=== PATIENT | female | born 1995 | race Caucasian/White ===

== ENCOUNTER 2016-07-27 13:22 | Outpatient (CLI) | payer MEDICAID, OTHER ==
[~2016-07-27] VITALS: Ht 154.9 cm; Wt 96.6 kg
[~2016-07-27 13:22] MED LIST: DOXY100T20 PO; IBUP-1542 PO; NEOM28OI TOP
[2016-07-27 13:25] VITALS: Ht 154.9 cm; Wt 96.6 kg
[2016-07-27 13:32] VITALS: BP 112/65; PULSE 87; RESP 18
[2016-07-27] MEDS ORDERED: TERBUTALINE 1 MG/ML INJ SC ONE (14:30)
[2016-07-27] MEDS ORDERED: LACTATED RINGER'S 1,000 ML IV ONE (14:30)
--- NOTE | 2016-07-27 14:55 | RADRPT ---
PROCEDURE: OB ultrasound for biophysical profile CLINICAL INDICATION: Contractions. TECHNIQUE: Multiple sonographic images of the pelvis were obtained. Transabdominal view of the gr avid uterus are available for review. The images were reviewed on a PACS workstation. COMPARISON: None FINDINGS: breathing movement = 2/2 tone = 2/2 motion = 2/2 Quantitative amniotic fluid volume = 2/2 TEJA = 16.8 cm Single live intrauterine with cardiac activity at 138 beats per minute. There is a fundal placenta without previa. IMPRESSION: 1. Single living intrauterine gestation in cephalic position. 2. Biophysical profile = 10/10. 3. TEJA = 16.8 cm. RPTAT: [facility] Physician Mansoor Date Time Electronically viewed and signed by [place] Physician on 07/27/2016 14:54 /
--- NOTE | 2016-07-27 15:48 | CONS ---
Date/Time of Note Date/Time of Note DATE: 07/27/16 TIME: 15:45 Assessment/Plan Assessment/Plan Additional Assessment/Plan 21 y/o at 35w 6d with contractions, now resolved, not in labor -discharge home with ptl/labor precautions -f/u with OB Consultation Date/Type/Reason Admit Date/Time Reason for Consultation Contractions Hx of Present Illness 21 y/o at 35w 6d who presents with contractions. Contractions were every few minutes, but have resolved s/p IVFs and terbutaline. Denies LOF, VB. +FM. Getting PNC, no complications. Past Medical History Medical History: no pertinent history Past Surgical History Past Surgical Hx: no surgical history Social History Denies habits Smoking Status: Never smoker Exam/Review of Systems Vital Signs Vitals Vital Signs Date Time Temp Pulse Resp B/P Pulse Ox O2 Delivery O2 Flow Rate FiO2 07/27/16 13:32 98.4 87 18 112/65 Room Air Exam Gen: NAD HEENT: NCAT CV: RRR Pulm: CTAB Abd: gravid, NT Back: no CVAT Ext: NT SVE: FT/50/-3 FHT: reactive [place]: irritability CRICKET GELLER July 27, 2016 15:48
[2016-07-27] MEDS ORDERED: PREN-93 PO (15:50)
--- NOTE | 2016-07-27 16:17 | TRIAGE ---
OB Triage Datetime Report Generated by CPN: 07/27/2016 16:17 Datetime: 07/27/2016 15:39 Comments: IV D/C'D, IV Catheter intact, IV site with no complication. Datetime: 07/27/2016 15:38 Comments: Dr. Carreno at bedside to review strip and assess pt. New order to sent pt home. She instr ucted pt to return to hospital if contractions get closer and stronger. Pt verbalized understanding . Datetime: 07/27/2016 15:30 Labor Evaluation Frequency: 4-9 Monitor Mode: External Duration (sec)2399: 40-70 Quality: Mild Pattern: Normal: <= 5 Contractions in 10 Minutes Resting Tone [place]: Relaxed Heart Rate FHR Baseline Rate: 140 Monitor Mode: External US FHR Baseline Changes: No Baseline Change Variability: Moderate 6-25 bpm Accelerations: 15X15 Decelerations: None Category: Category I Pain Assessment Pain Scale: 0 Pain Presence: None/Denies Pain Type: N/A Pain Goal: 3 Datetime: 07/27/2016 15:05 Labor Evaluation Frequency: 2-7 Monitor Mode: External Duration (sec)2399: 30-60 Quality: Mild Pattern: Normal: <= 5 Contractions in 10 Minutes Resting Tone [place]: Relaxed Heart Rate FHR Baseline Rate: 130 Monitor Mode: External US FHR Baseline Changes: No Baseline Change Variability: Moderate 6-25 bpm Accelerations: 15X15 Decelerations: None Category: Category I Pain Assessment Pain Scale: 3 Pain Presence: Intermittent Pain Type: Cramping Pain Location: Abdomen; Back Pain Goal: 3 Datetime: 07/27/2016 14:36 Labor Evaluation Frequency: 2-7 Monitor Mode: External Duration (sec)2399: 40-60 Quality: Mild Pattern: Normal: <= 5 Contractions in 10 Minutes Resting Tone [place]: Relaxed Heart Rate FHR Baseline Rate: 135 Monitor Mode: External US FHR Baseline Changes: No Baseline Change Variability: Moderate 6-25 bpm Accelerations: 15X15 Decelerations: None Category: Category I Datetime: 07/27/2016 14:03 Comments: Dr. Coelho was informed of pt's arrival to unit with c/o uc's. Pt blanka 2-5, VE 0. 5/50/-3. New order to start IV, give a dose of terbulatine, and Bpp Datetime: 07/27/2016 14:00 Labor Evaluation Frequency: 2-5 Monitor Mode: External Duration (sec)2399: 40-70 Quality: Mild Pattern: Normal: <= 5 Contractions in 10 Minutes Resting Tone [place]: Relaxed Heart Rate FHR Baseline Rate: 135 Monitor Mode: External US FHR Baseline Changes: No Baseline Change Variability: Moderate 6-25 bpm Accelerations: 15X15 Decelerations: None Category: Category I Pain Assessment Pain Scale: 3 Pain Presence: Intermittent Pain Type: Cramping Pain Location: Abdomen Pain Goal: 3 Pain Relief Measures: Comfort Measures Datetime: 07/27/2016 13:56 Vaginal Exam Dilatation (cms): 0.5 Effacement (%): 50 Station: -3 Exam By: LH Datetime: 07/27/2016 13:33 Time of Arrival: 07/27/2016 13:15 EGA: 35.6 Arrived By: Ambulatory Arrived From: Home Chief Complaint: CONTRACTIONS EVERY 30 MIN Movement: Present Contractions: Irregular Time Contractions Began: 07/27/2016 08:00 Rupture of Membranes: Denies Vaginal Bleeding: None Vaginal Discharge: Denies Recent Sexual Intercouse: Denies Abdominal Trauma: Not Applicable Patient Complaints: Contractions Initial Plan: NST, VE, IV hydration, terb 0.25mg and BPP
== END 2016-07-27 16:20 | disposition home or self-care (01) ==
LOC: OBT 13:22 → L-D 13:23 → OBT 16:20
PROVIDERS: ATTEND Obstetrics & Gynecology
DX: O62.9 Abnormality of forces of labor, unspecified (principal); Z3A.35 35 weeks gestation of pregnancy
CPT/HCPCS: 76818; 96360; 96361; 96372; J3105; J7120; Z7500; G0463

== ENCOUNTER 2016-08-28 05:00 | Inpatient (IN) | payer OTHER ==
[~2016-08-28] VITALS: Ht 154.9 cm; Wt 96.4 kg
[~2016-08-28 05:00] MED LIST changes: -DOXY100T20 PO; -IBUP-1542 PO; -NEOM28OI TOP; +PREN-93 PO
[2016-08-28 05:22] VITALS: BP 109/57; PULSE 75; RESP 18
[2016-08-28] MEDS ORDERED: FERR134T PO (05:24)
[2016-08-28] MEDS ORDERED: METHYLERGONOVINE 0.2 MG INJ IM PRN (06:00)
[2016-08-28] MEDS ORDERED: IBUPROFEN 600 MG TAB PO PRN (06:00)
[2016-08-28] MEDS ORDERED: MISOPROSTOL 200 MCG TAB PR PRN (06:00)
[2016-08-28] MEDS ORDERED: OXYTOCIN 30 UNITS/LR 500 ML IV SCH ×3 (06:00)
[2016-08-28] MEDS ORDERED: BUTORPHANOL 2 MG INJ IV PRN (06:00)
[2016-08-28] MEDS ORDERED: LIDOCAINE 1% (MPF) 30 ML INJ INJ PRN (06:00)
[2016-08-28] MEDS ORDERED: CARBOPROST 250 MCG INJ IM PRN (06:00)
[2016-08-28] MEDS ORDERED: OXYTOCIN 30 UNITS/LR 500 ML IV PRN (06:00)
[2016-08-28] MEDS ORDERED: MINERAL OIL LIGHT 10 ML VIAL TOP ONE (06:00)
[2016-08-28] MEDS: LACTATED RINGER'S 1,000 ML IV SCH ×2 (06:13→19:00)
[2016-08-28 06:22] VITALS: BP 110/59; PULSE 82; RESP 18
--- NOTE | 2016-08-28 06:33 | HP ---
Date/Time of Note Date/Time of Note DATE: 08/28/16 TIME: 06:29 OB - History Hx of Present Free Text/Dictation 21 YO with IUP at 40.3 weeks reports in labor Care: Good Care Obstetrical Complications: None Medical Complications: None Past Family/Social History * Past Medical, Surgical, Family and Obstetric Histories reviewed from chart. OB Admission Exam Vital Signs Vital Signs Vital Signs Date Time Temp Pulse Resp B/P Pulse Ox O2 Delivery O2 Flow Rate FiO2 08/28/16 06:22 98.3 82 18 110/59 Room Air Physical Exam HEENT: WNL Heart: Rhythm Normal Lungs: Clear, Equal Abdomen: WNL Extremities: Normal Reflexes: Normal Cervical Dilatation: 2cm Effacement: 75% Station: -2 Membranes: Ruptured Accelerations: Accelerations Present Contractions on Admission: < 5 Minutes Apart Intensity: Mild OB Assessment/Plan Other Assessment: Early labor with SROM Plan: Other (Pitocin) ANN HALL MD Aug 28, 2016 06:33
[2016-08-28 06:40] LABS: ADD SCAN DIFF NO
[2016-08-28 06:47] LABS: BASOPHILS % 0.2 % (0.0-2.0); EOSINOPHILS # 0.2 10^3/ul (0.0-0.5); EOSINOPHILS % 1.3 % (0.0-7.0); HEMATOCRIT 32.8 % (37.0-47.0); HEMOGLOBIN 10.5 g/dl (12.0-16.0); LYMPHOCYTES # 1.4 10^3/ul (0.8-2.9); MEAN CORPUSCULAR HEMOGLOBIN 26.6 pg (29.0-33.0); MEAN CORPUSCULAR VOLUME 83.2 fl (82.0-101.0); MEAN PLATELET VOLUME 9.9 fl (7.4-10.4); MONOCYTES % 8.5 % (0.0-11.0); NEUTROPHIL # 8.9 10^3/ul (1.6-7.5); NEUTROPHILS % 77.2 % (39.0-77.0); PLATELET COUNT 314 10^3/UL (140-415); RED BLOOD COUNT 3.94 10^6/ul (4.20-5.40); WHITE BLOOD COUNT 11.5 10^3/ul (4.8-10.8)
[2016-08-28 07:05] LABS: INR 0.97; PROTIME 12.9 Sec (12.2-14.2)
[2016-08-28 07:06] LABS: PARTIAL THROMBOPLASTIN TIME 26.6 Sec (25.0-35.0)
--- NOTE | 2016-08-28 10:06 | RADRPT ---
PROCEDURE: US Limited OB. CLINICAL INDICATION: Estimated weight. TECHNIQUE: Multiple sonographic images of the pelvis were obtained. Transabdominal imaging only w as performed. COMPARISON: None. FINDINGS: Cardiac activity is present with 126 beats per minute. Presentation is vertex. Measurements were made in order to determine age. The results are as follows: BPD = 36 w 2 d HC = 35 w 0 d AC = 39 w 5 d FL = 37 w 0 d Estimated weight is 3411 g, 27.4%. The placenta is fundal, with no evidence of previa. IMPRESSION: 1. Single, live intrauterine with estimated age of 37 weeks, 0 days. 2. Estimated weight: 3411 g, 27.4%. RPTAT: EE .Darren Buckley MD, Date Time Electronically viewed and signed by .Darren Buckley MD, on 08/28/2016 10:10 .C/
[2016-08-28] MEDS: LACTATED RINGER'S 1,000 ML IV PRN ×2 (11:04→11:53)
[2016-08-28] MEDS ORDERED: FENTAnyl 2MCG/ML-ROPIV 0.2% 100 ML ONE (11:21)
[2016-08-28] MEDS ORDERED: ONDANSETRON 4 MG INJ IV PRN (12:00)
[2016-08-28] MEDS ORDERED: NALOXONE (0.4 MG/ML) INJ IV PRN (12:00)
[2016-08-28] MEDS ORDERED: DIPHENHYDRAMINE 50 MG INJ IV PRN (12:00)
[2016-08-28] MEDS: FENTAnyl 2MCG/ML-ROPIV 0.2% 100 ML BAG EPI SCH ×2 (16:06→20:59)
[2016-08-28] MEDS: AMPICILLIN 2 GM/NS (PMX) 100 ML IVPB SCH (23:47)
[2016-08-29] MEDS: LACTATED RINGER'S 1,000 ML IV SCH ×4 (00:01→21:39)
[2016-08-29] MEDS: AMPICILLIN 2 GM/NS (PMX) 100 ML IVPB SCH (05:51)
[2016-08-29] MEDS: FENTAnyl 2MCG/ML-ROPIV 0.2% 100 ML BAG EPI SCH (05:54)
--- NOTE | 2016-08-29 09:55 | LDN ---
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 , placenta spontaneous expulsion inspected compelet blood loss 250 ,pt sustained small labial laceration repaired with 30 cc Weeks of Gestation [id number]/7 days Placenta Delivered: Spontaneously Meconium: none Episiotomy: No Indication for episiotomy labial laceration Laceration repair: laceration labia repaired with 2/0 cc Anesthesia type: Epidural Sponge & Needle done & correct: Yes All needle counts correct: Yes Any foreign bodies felt in the: No Problems: Infant Delivery Information Sex Infant Sex: female Apgars 1 Minute: 9 5 Minute: 9 Suctioning Nose & mouth suctioned at [place]: Yes Delee suction performed: No Umbilical Cord Umbilical cord with: 3 Vessels Cord presentations: no nuchal cord Cord Blood was obtained: Yes ALBERTO PATINO MD Aug 29, 2016 09:55
[2016-08-29 10:55] VITALS: BP 115/56; PULSE 88; RESP 19
[2016-08-29] MEDS ORDERED: DIBUCAINE 1% 30 GM OINT PR PRN (11:00)
[2016-08-29] MEDS ORDERED: OXYCODONE/ASPIRIN (4.88/325) TAB PO PRN ×2 (11:00)
[2016-08-29] MEDS ORDERED: ONDANSETRON 4 MG INJ IV PRN (11:00)
[2016-08-29] MEDS ORDERED: BENZOCAINE 20% 56 ML SPRAY TOP PRN (11:00)
[2016-08-29] MEDS ORDERED: WITCH HAZEL/GLYCERIN PAD PR PRN (11:00)
[2016-08-29] MEDS ORDERED: ACETAMINOPHEN 325 MG TAB PO PRN (11:00)
[2016-08-29] MEDS ORDERED: ACETAMINOPHEN/CODEINE #3 TAB PO PRN ×2 (11:00)
[2016-08-29] MEDS: IBUPROFEN 600 MG TAB PO SCH ×2 (12:00→18:32)
[2016-08-29 12:30] VITALS: BP 95/53; PULSE 81; RESP 16
[2016-08-29] MEDS: OXYTOCIN 30 UNITS/LR 500 ML IV SCH ×2 (14:04→14:51)
[2016-08-29 16:30] VITALS: BP 104/64; PULSE 83; RESP 19
[2016-08-29] MEDS: LANOLIN 7 GM TUBE TOP PRN (18:32)
[2016-08-29 20:20] VITALS: BP 99/54; PULSE 80; RESP 17
[2016-08-29] MEDS: SENNA/DOCUSATE NA (8.6MG/50MG) TAB PO SCH (21:55)
[2016-08-30] MEDS: IBUPROFEN 600 MG TAB PO SCH ×5 (00:17→23:35)
[2016-08-30 03:47] VITALS: BP 101/58; PULSE 84; RESP 18
[2016-08-30] MEDS: LACTATED RINGER'S 1,000 ML IV SCH (05:39)
[2016-08-30 08:00] VITALS: BP 107/58; PULSE 67; RESP 16
[2016-08-30 08:24] LABS: ADD SCAN DIFF NO
[2016-08-30 08:34] LABS: BASOPHIL # 0.1 10^3/ul (0.0-0.1); BASOPHILS % 0.3 % (0.0-2.0); EOSINOPHILS # 0.2 10^3/ul (0.0-0.5); HEMOGLOBIN 9.7 g/dl (12.0-16.0); LYMPHOCYTES # 1.7 10^3/ul (0.8-2.9); LYMPHOCYTES % 11.1 % (15.0-51.0); MEAN CORPUSCULAR HEMOGLOBIN 26.5 pg (29.0-33.0); MEAN CORPUSCULAR HGB CONC 31.3 g/dl (32.0-37.0); MEAN CORPUSCULAR VOLUME 84.7 fl (82.0-101.0); MEAN PLATELET VOLUME 10.1 fl (7.4-10.4); MONOCYTE # 1.1 10^3/ul (0.3-0.9); MONOCYTES % 7.3 % (0.0-11.0); NEUTROPHIL # 12.3 10^3/ul (1.6-7.5); NEUTROPHILS % 79.4 % (39.0-77.0); PLATELET COUNT 283 10^3/UL (140-415); RED BLOOD COUNT 3.66 10^6/ul (4.20-5.40); RED CELL DISTRIBUTION WIDTH 16.3 % (11.5-14.5); WHITE BLOOD COUNT 15.4 10^3/ul (4.8-10.8)
--- NOTE | 2016-08-30 09:09 | PN ---
Date/Time of Note Date/Time of Note DATE: 08/30/16 TIME: 09:08 OB Subjective Subjective Subjective day 1 Afebrile vital signs abdomen soft uterus firm lochia moderate extremity ambulation encouraged Laboratory Tests Test 08/30/16 08:15 White Blood Count 15.410^3/ul Red Blood Count 3.6610^6/ul Hemoglobin 9.7g/dl Hematocrit 31.0% Mean Corpuscular Volume 84.7fl Mean Corpuscular Hemoglobin 26.5pg Mean Corpuscular Hemoglobin Concent 31.3g/dl Red Cell Distribution Width 16.3% Platelet Count 09650^3/UL Mean Platelet Volume 10.1fl Neutrophils % 79.4% Lymphocytes % 11.1% Monocytes % 7.3% Eosinophils % 1.0% Basophils % 0.3% Nucleated Red Blood Cells % 0.0/100WBC Neutrophils # 12.310^3/ul Lymphocytes # 1.710^3/ul Monocytes # 1.110^3/ul Eosinophils # 0.210^3/ul Basophils # 0.110^3/ul Nucleated Red Blood Cells # 0.010^3/ul Current Medications Medications (Trade) Dose Ordered Sig/Len Route PRN Reason Start Time Stop Time Status Last Admin Dose Admin Lactated Ringer's 1,000 ml @ 125 mls/hr Q8H IV 08/28/16 05:39 08/30/16 08:58 DC 08/29/16 03:21 Oxytocin/Lactated Ringer's 500 ml @ 0 mls/hr TITRATE IV 08/28/16 06:00 08/29/16 10:57 DC 08/28/16 07:21 Butorphanol Tartrate (Stadol) 2 mg Q2H PRN IV PAIN 08/28/16 06:00 08/29/16 10:59 DC 08/28/16 10:04 Lidocaine 30 ml 30 ml ONCE PRN INJ EPISIOTOMY/TEARING 08/28/16 06:00 08/29/16 10:59 DC Oxytocin/Lactated Ringer's 500 ml @ 125 mls/hr ONCE -MAY REPEAT X1 IV 08/28/16 06:00 08/29/16 10:57 DC Oxytocin/Lactated Ringer's 500 ml @ 125 mls/hr ONCE IV 08/28/16 06:00 08/29/16 10:05 Ibuprofen 600 mg 600 mg ONCE PRN PO Mild Pain (Pain Score 1-3) 08/28/16 06:00 08/29/16 10:59 DC 08/29/16 09:35 Lactated Ringer's 1,000 ml @ 2,000 mls/hr Q30M PRN IV PRE-EPIDURAL BOLUS 08/28/16 07:00 08/29/16 10:59 DC 08/28/16 11:53 Oxytocin/Lactated Ringer's 500 ml @ 0 mls/hr ONCE PRN IV For Hemorrhage Management 08/28/16 06:00 08/29/16 10:59 DC Methylergonovine Maleate (Methergine) 0.2 mg ONCE PRN IM VAGINAL BLEEDING 08/28/16 06:00 08/29/16 10:59 DC Carboprost Tromethamine (Hemabate) 250 mcg ONCE PRN IM VAGINAL BLEEDING 08/28/16 06:00 Misoprostol (Cytotec) 1,000 mcg ONCE PRN DE VAGINAL BLEEDING 08/28/16 06:00 08/29/16 10:59 DC Mineral Oil ONCE ONCE TOP 08/28/16 06:00 08/28/16 06:01 DC Fentanyl/ Ropivacaine 100 ml @ ud STK-MED ONCE .ROUTE 08/28/16 11:21 08/28/16 11:22 DC Naloxone HCl (Narcan) 0.1 mg Q2M PRN IV FOR RESP RATE 8 OR LESS 08/28/16 12:00 08/29/16 10:58 DC Diphenhydramine HCl (Benadryl) 25 mg Q6H PRN IV ITCHING 08/28/16 12:00 08/29/16 11:59 DC Ondansetron HCl (Zofran Inj) 4 mg Q6H PRN IV NAUSEA AND/OR VOMITING 08/28/16 12:00 08/29/16 10:58 DC Fentanyl/ Ropivacaine 100 ml 100 ml EPIDURAL INFUSION EPI 08/28/16 12:00 08/29/16 10:58 DC 08/29/16 05:54 Ampicillin 100 ml @ 100 mls/hr Q6 IVPB 08/29/16 00:00 08/29/16 10:58 DC 08/29/16 05:51 Oxytocin/Lactated Ringer's 500 ml @ 125 mls/hr Q4H IV 08/29/16 10:51 08/29/16 18:50 DC 08/29/16 14:04 Ibuprofen (Motrin) 600 mg Q6 PO 08/29/16 12:00 08/30/16 06:18 Acetaminophen (Tylenol Tab) 650 mg Q4H PRN PO PAIN LEVEL 1-5 08/29/16 11:00 Acetaminophen/ Codeine Phosphate (Tylenol No.3) 1 tab Q4H PRN PO PAIN LEVEL 1-5 08/29/16 11:00 Acetaminophen/ Codeine Phosphate (Tylenol No.3) 2 tab Q4H PRN PO PAIN LEVEL 6-10 08/29/16 11:00 Oxycodone/Aspirin (Percodan) 1 tab Q3H PRN PO PAIN LEVEL 1-5 08/29/16 11:00 Oxycodone/Aspirin (Percodan) 2 tab Q3H PRN PO PAIN LEVEL 6-10 08/29/16 11:00 Ondansetron HCl (Zofran Inj) 4 mg Q6H PRN IV NAUSEA AND/OR VOMITING 08/29/16 11:00 Senna/Docusate Sodium (Senokot-S) 1 tab BID PO 08/29/16 21:00 08/29/16 21:55 Witch Erlinda/ Glycerin (Tucks Pads) 1 pad BEDSIDE MEDICATION PRN DE HEMORRHOID/EPISIOTMY PAIN 08/29/16 11:00 08/29/16 18:32 Benzocaine (Dermoplast Alba) 1 spray BEDSIDE MEDICATION PRN TOP HEMORRHOID/EPISIOTMY PAIN 08/29/16 11:00 08/29/16 18:32 Dibucaine (Nupercainal) 1 applic BEDSIDE MEDICATION PRN DE HEMORRHOID/EPISIOTMY PAIN 08/29/16 11:00 Lanolin (Uth-B-Wqminl) 1 applic BEDSIDE MEDICATION PRN TOP BEDSIDE FOR ANGELLA TO NIPPLES 08/29/16 11:00 08/29/16 18:32 Measles/Mumps/ Rubella Vaccine Live (Mmr Ii Vaccine) 0.5 ml ONCE ONCE SC* 08/31/16 09:00 08/31/16 09:01 ALBERTO PATINO MD Aug 30, 2016 09:09
[2016-08-30] MEDS: SENNA/DOCUSATE NA (8.6MG/50MG) TAB PO SCH ×2 (09:14→21:12)
[2016-08-30 15:50] VITALS: BP 113/60; PULSE 70; RESP 18
[2016-08-30 20:20] VITALS: BP 106/71; PULSE 75; RESP 18
[2016-08-31 04:30] VITALS: BP 102/53; PULSE 59; RESP 18
[2016-08-31] MEDS: IBUPROFEN 600 MG TAB PO SCH ×3 (05:48→17:25)
[2016-08-31 08:00] VITALS: BP 113/60; PULSE 64; RESP 17
[2016-08-31] MEDS ORDERED: MEASLES,MUMPS,RUBELLA VACCINE INJ SC* ONE (09:00)
[2016-08-31] MEDS: SENNA/DOCUSATE NA (8.6MG/50MG) TAB PO SCH (09:33)
[2016-08-31] MEDS: LANOLIN 7 GM TUBE TOP PRN (12:17)
--- NOTE | 2016-08-31 12:38 | PN ---
Date/Time of Note Date/Time of Note DATE: 08/31/16 TIME: 12:37 OB Subjective Subjective Subjective day 1 Afebrile vital signs are stable, abdomen soft, uterus firm, lochia normal, extremity normal ambulation encouraged,, plan of a.m. discharge discussed ALBERTO PATINO MD Aug 31, 2016 12:38
[2016-08-31 16:00] VITALS: BP 110/56; PULSE 66; RESP 16
== END 2016-08-31 18:57 | disposition home or self-care (01) | DRG 775 ==
LOC: L-D 05:00 → OBT 05:00 → L-D 05:35 → OBT 05:35 → PP1 08-29 11:24
PROVIDERS: ADMIT Obstetrics & Gynecology; ATTEND Obstetrics & Gynecology
PROC: 10E0XZZ Delivery of Products of Conception, External Approach (ICD-10-PCS; principal; 2016-08-29)
PROC: 0HQ9XZZ Repair Perineum Skin, External Approach (ICD-10-PCS; 2016-08-29)
DX: O48.0 Post-term pregnancy (principal); O70.0 First degree perineal laceration during delivery; Z3A.40 40 weeks gestation of pregnancy; Z37.0 Single live birth
CPT/HCPCS: 62319; 76815; 85025; 85610; 85730; 86592; 86900; 86901; G0463; J0290; J0595; J2590; J3010; J7120

== ENCOUNTER 2018-03-18 17:28 | Emergency (ER) | payer MEDICAID, OTHER ==
[~2018-03-18] VITALS: Wt 104.1 kg
[~2018-03-18 17:28] MED LIST changes: +FERR134T PO
[2018-03-18] MEDS ORDERED: IBUP-1542 PO (18:40)
--- NOTE | 2018-03-18 18:46 | ERD ---
ER Documentation Chief Complaint Chief Complaint mid-CP since AM; onset at rest, 'sharp, poking'. reproducible. teary. HPI 22-year-old female presents with left sided chest pain since this morning. She has had a history of intermittent similar pain in her upper back usually relieved with massage. She denies any shortness of breath, hemoptysis, syncope, abdominal pain. She denies any calf swelling. ROS All systems reviewed and are negative except as per history of present illness. Medications Home Meds Active Scripts Ibuprofen* (Motrin*) 600 Mg Tab, 600 MG PO Q6, #30 TAB Prov:IVAN CARCAMO MD 03/18/18 Reported Medications Ferrous Sulfate (Iron) 134 Mg Tablet, 134 MG PO DAILY, TAB 08/28/16 Vit No.124/Iron/FA ( Vitamin Tablet) 1 Each Tablet, 1 EACH PO, TAB 07/27/16 Allergies Allergies: Coded Allergies: No Known Allergy (Unverified , 08/28/16) PMhx/Soc Medical and Surgical Hx: pt denies Medical Hx, pt denies Surgical Hx Hx Alcohol Use: No Hx Substance Use: No Hx Tobacco Use: No Smoking Status: Never smoker FmHx Family History: No diabetes, No coronary disease, No other Physical Exam Vitals Vital Signs Date Temp Pulse Resp B/P (MAP) Pulse Ox O2 O2 Flow FiO2 Time Delivery Rate 03/18/18 98.3 87 18 148/91 97 17:34 (110) Physical Exam Const: No acute distress. [id number]. Speaking complete sentences. Head: Atraumatic Eyes: Normal Conjunctiva ENT: Normal External Ears, Nose and Mouth. Neck: Full range of motion. No meningismus. Resp: Clear to auscultation bilaterally Cardio: Regular rate and rhythm, no murmurs. Reproducible left costochondral pain. Abd: Soft, non tender, non distended. Normal bowel sounds Skin: No petechiae or rashes Back: No midline or flank tenderness Ext: No cyanosis, or edema. Negative Homans sign. Neur: Awake and alert Psych: Normal Mood and Affect Results 24 hrs Current Medications Medications Dose Sig/Len Start Time Status Last (Trade) Ordered Route PRN Stop Time Admin Dose Reason Admin Ibuprofen 600 mg ONCE ONCE 03/18/18 (Motrin) PO 19:00 03/18/18 19:01 Procedures/MDM Pt presents with reproducible left anterior chest wall pain consistent with costochondritis. She has no signs or symptoms suggest PE as PERC negative. There are no signs of pneumonia, hypoxemia, respiratory distress.,and patient is well-appearing. She will be treated with ibuprofen, further observation and return precautions. The patient was stable with no new complaints during the ER course. Clinically, there is no current evidence to suggest meningitis, sepsis, acute abdomen, pneumonia, stroke, acute coronary syndrome, pulmonary embolism, aortic dissection or any other emergent condition appearing to require further evaluation or hospitalization. Patient counseled regarding my diagnostic impression and care plan. Prior to discharge all questions answered. Pt agrees with treatment plan and understands strict return precautions. Pt is instructed to follow up with primary care provider within 24-48 hours. Precautionary instructions provided including instructions to return to the ER if not improving or for any worsening or changing symptoms or concerns. Departure Diagnosis: Primary Impression: Costochondritis, acute Additional Impression: Chest pain Chest pain type: unspecified Qualified Codes: R07.9 - Chest pain, uns pecified Condition: Stable Patient Instructions: Costochondritis Referrals: [facility] YOU HAVE RECEIVED A MEDICAL SCREENING EXAM AND THE RESULTS INDICATE THAT YOU DO NOT HAVE A CONDITION THAT REQUIRES URGENT TREATMENT IN THE EMERGENCY DEPARTMENT. FURTHER EVALUATION AND TREATMENT OF YOUR CONDITION CAN WAIT UNTIL YOU ARE SEEN IN YOUR DOCTORS OFFICE WITHIN THE NEXT 1-2 DAYS. IT IS YOUR RESPONSIBILITY TO MAKE AN APPOINTMENT FOR FOLOW-UP CARE. IF YOU HAVE A PRIMARY DOCTOR --you should call your primary doctor and schedule an appointment IF YOU DO NOT HAVE A PRIMARY DOCTOR YOU CAN CALL OUR PHYSICIAN REFERRAL HOTLINE AT IF YOU CAN NOT AFFORD TO SEE A PHYSICIAN YOU CAN CHOSE FROM THE FOLLOWING [facility] [address] [facility] [address] [facility] [facility] [address] [facility] [address] [facility] [address] [facility]. [facility]. [address] Additional Instructions: EKG normal. Likely costochondritis. Recheck for new or worsening symptoms with primary care doctor. IVAN CARCAMO MD Mar 18, 2018 18:46
[2018-03-18 19:00] VITALS: BP 123/75; PULSE 71; RESP 18
[2018-03-18] MEDS ORDERED: IBUPROFEN 600 MG TAB PO ONE (19:00)
== END 2018-03-18 19:03 | disposition home or self-care (01) ==
LOC: FTE 17:28
DX: M94.0 Chondrocostal junction syndrome [Tietze] (principal)
CPT/HCPCS: 93005; Z7502; Z7610